=== PATIENT | male | born 1965 | race Caucasian/White ===

== ENCOUNTER 2023-04-26 14:34 | Inpatient (IN) | payer OTHER ==
[~2023-04-26] VITALS: Ht 162.6 cm; Wt 55.3 kg
[2023-04-26] MEDS ORDERED: ACETAMINOPHEN 650 MG/20.3 ML SOLUTION UDCUP PO PRN (16:15)
[2023-04-26] MEDS ORDERED: OxyCODONE HCL 5 MG IR TABLET PO PRN (16:15)
[2023-04-26] MEDS ORDERED: PNEUMOCOCCAL VACCINE POLYVALENT 0.5 ML VIAL [PPSV23] IM. ONE (18:00)
[2023-04-26 20:00] VITALS: BP 120/84; PULSE 89; RESP 18; TEMP 98; O2SAT 99
[2023-04-26] MEDS: DOCUSATE SODIUM 100 MG/10 ML LIQUID UDCUP PO SCH (21:00)
[2023-04-26] MEDS: SENNOSIDES 8.8 MG/5 ML SYRUP UDCUP PO SCH (21:00)
[2023-04-26] MEDS: -LIDODERM PATCH NOTE- MISC SCH (21:45)
[2023-04-26] MEDS: MELATONIN 5 MG TABLET PO SCH (21:53)
[2023-04-26] MEDS: CHLORHEXIDINE GLUCONATE 0.12% 15 ML UDCUP ORAL RINSE PO SCH (22:05)
[2023-04-27 06:48] LABS: BASOPHILS % (AUTO) 0.2 % (0.0-2.0); EOSINOPHILS % (AUTO) 1.8 % (1.0-6.0); HEMOGLOBIN 11.7 g/dL (13.5-17.5); LYMPHOCYTES # (AUTO) 1.3 K/uL (1.0-4.8); LYMPHOCYTES % (AUTO) 16.3 % (22.0-44.0); MEAN CORPUSCULAR HEMOGLOBIN 29.6 pg (26.0-34.0); MEAN CORPUSCULAR HGB CONC 33.5 G/dL (31.0-37.0); MEAN CORPUSCULAR VOLUME 89 fL (80-100); MONOCYTES # (AUTO) 0.7 K/uL (0.1-1.0); MONOCYTES % (AUTO) 8.9 % (2.0-9.0); NEUTROPHILS # (AUTO) 5.8 K/uL (1.8-7.7); NEUTROPHILS % (AUTO) 72.8 % (40.0-70.0); PLATELET COUNT (AUTO) 575 K/uL (150-450); RED BLOOD CELL COUNT(AUTO) 3.96 MIL/uL (4.50-5.90); RED CELL DISTRIBUTION WIDTH 13.2 % (11.5-14.5)
[2023-04-27 07:11] LABS: ALANINE AMINOTRANSFERASE 59 U/L (12-78); ALKALINE PHOSPHATASE 97 U/L (46-116); ANION GAP 8 mmol/L (8-16); ASPARTATE AMINOTRANSFERASE 28 U/L (15-37); BILIRUBIN,TOTAL 0.6 mg/dL (0.1-1.0); CALCIUM, TOTAL 9.2 mg/dL (8.8-10.5); CARBON DIOXIDE 30 mmol/L (22-29); CHLORIDE 101 mmol/L (98-107); CREATININE 0.81 mg/dL (0.60-1.30); GLOMERULAR FILTR. RATE CALC > 60 mL/min (>60); GLUCOSE,RANDOM 136 mg/dL (70-110); SODIUM SERUM 139 mmol/L (136-145); TOTAL PROTEIN, SERUM 7.2 g/dL (6.4-8.2)
[2023-04-27 08:27] VITALS: BP 114/76; PULSE 67; RESP 18; TEMP 98.5; O2SAT 98
[2023-04-27] MEDS: AmLODIPine BESYLATE 10 MG TABLET PO SCH (08:36)
[2023-04-27] MEDS: DOCUSATE SODIUM 100 MG/10 ML LIQUID UDCUP PO SCH ×2 (08:36→20:58)
[2023-04-27] MEDS: TAMSULOSIN HCL 0.4 MG CAPSULE PO SCH (08:36)
[2023-04-27] MEDS: CHLORHEXIDINE GLUCONATE 0.12% 15 ML UDCUP ORAL RINSE PO SCH ×4 (08:37→20:58)
[2023-04-27] MEDS: LIDOCAINE 5% TRANSDERMAL PATCH TD SCH (08:39)
[2023-04-27] MEDS: SENNOSIDES 8.8 MG/5 ML SYRUP UDCUP PO SCH (20:58)
[2023-04-27] MEDS: -LIDODERM PATCH NOTE- MISC SCH (20:58)
[2023-04-27] MEDS: MELATONIN 5 MG TABLET PO SCH (20:58)
[2023-04-27 21:00] VITALS: BP 143/80; RESP 16; TEMP 98; O2SAT 100
[2023-04-27 22:06] VITALS: O2SAT 100
[2023-04-28] MEDS: DOCUSATE SODIUM 100 MG/10 ML LIQUID UDCUP PO SCH ×2 (08:08→21:15)
[2023-04-28] MEDS: CHLORHEXIDINE GLUCONATE 0.12% 15 ML UDCUP ORAL RINSE PO SCH ×4 (08:08→23:42)
[2023-04-28] MEDS: TAMSULOSIN HCL 0.4 MG CAPSULE PO SCH (08:08)
[2023-04-28] MEDS: AmLODIPine BESYLATE 10 MG TABLET PO SCH (08:08)
[2023-04-28] MEDS: LIDOCAINE 5% TRANSDERMAL PATCH TD SCH (08:09)
[2023-04-28 18:37] VITALS: BP 113/77; PULSE 65; RESP 19; TEMP 98.4; O2SAT 98
[2023-04-28 18:40] VITALS: O2SAT 98
[2023-04-28 20:00] VITALS: BP 118/86; PULSE 97; RESP 18; TEMP 97.9; O2SAT 99
[2023-04-28] MEDS: -LIDODERM PATCH NOTE- MISC SCH (20:47)
[2023-04-28] MEDS: MELATONIN 5 MG TABLET PO SCH (21:16)
[2023-04-28] MEDS: SENNOSIDES 8.8 MG/5 ML SYRUP UDCUP PO SCH (21:16)
[2023-04-29] MEDS: CHLORHEXIDINE GLUCONATE 0.12% 15 ML UDCUP ORAL RINSE PO SCH ×4 (08:13→20:00)
[2023-04-29] MEDS: DOCUSATE SODIUM 100 MG/10 ML LIQUID UDCUP PO SCH ×2 (08:13→20:00)
[2023-04-29] MEDS: TAMSULOSIN HCL 0.4 MG CAPSULE PO SCH (08:14)
[2023-04-29] MEDS: AmLODIPine BESYLATE 10 MG TABLET PO SCH (08:14)
[2023-04-29] MEDS: LIDOCAINE 5% TRANSDERMAL PATCH TD SCH (08:14)
[2023-04-29 10:56] VITALS: BP 126/83; PULSE 76; RESP 20; TEMP 98.2; O2SAT 99
[2023-04-29 20:00] VITALS: BP 123/85; PULSE 78; RESP 18; TEMP 98; O2SAT 100
[2023-04-29] MEDS: MELATONIN 5 MG TABLET PO SCH (20:00)
[2023-04-29] MEDS: SENNOSIDES 8.8 MG/5 ML SYRUP UDCUP PO SCH (20:00)
[2023-04-29] MEDS: -LIDODERM PATCH NOTE- MISC SCH (20:01)
[2023-04-30 08:01] VITALS: BP 114/72; PULSE 68; RESP 18; TEMP 97.7; O2SAT 94
[2023-04-30] MEDS: TAMSULOSIN HCL 0.4 MG CAPSULE PO SCH (08:17)
[2023-04-30] MEDS: AmLODIPine BESYLATE 5 MG TABLET PO SCH (08:17)
[2023-04-30] MEDS: DOCUSATE SODIUM 100 MG/10 ML LIQUID UDCUP PO SCH ×2 (08:18→20:37)
[2023-04-30] MEDS: CHLORHEXIDINE GLUCONATE 0.12% 15 ML UDCUP ORAL RINSE PO SCH ×5 (08:18→20:37)
[2023-04-30] MEDS ORDERED: PANTOPRAZOLE SODIUM 40 MG DR TABLET PO SCH (09:00)
[2023-04-30] MEDS: DOCUSATE SODIUM 283 MG/5 ML MINI-ENEMA PR PRN (20:10)
[2023-04-30] MEDS: MELATONIN 5 MG TABLET PO SCH (20:37)
[2023-04-30] MEDS: SENNOSIDES 8.8 MG/5 ML SYRUP UDCUP PO SCH (20:37)
[2023-04-30 21:52] VITALS: BP 123/80; PULSE 67; RESP 19; TEMP 98.1; O2SAT 98
[2023-05-01] MEDS: DOCUSATE SODIUM 100 MG/10 ML LIQUID UDCUP PO SCH ×2 (09:00→20:22)
[2023-05-01 09:02] VITALS: BP 115/77; PULSE 67; RESP 18; TEMP 98.1; O2SAT 100
[2023-05-01] MEDS: TAMSULOSIN HCL 0.4 MG CAPSULE PO SCH (10:15)
[2023-05-01] MEDS: AmLODIPine BESYLATE 5 MG TABLET PO SCH (10:15)
[2023-05-01] MEDS: CHLORHEXIDINE GLUCONATE 0.12% 15 ML UDCUP ORAL RINSE PO SCH ×4 (10:16→20:24)
[2023-05-01 20:00] VITALS: BP 112/81; PULSE 76; RESP 16; TEMP 97.7; O2SAT 100
[2023-05-01] MEDS: SENNOSIDES 8.8 MG/5 ML SYRUP UDCUP PO SCH (20:23)
[2023-05-01] MEDS: MELATONIN 5 MG TABLET PO SCH ×2 (20:24→20:30)
[2023-05-02 08:12] VITALS: BP 117/79; PULSE 62; RESP 18; TEMP 97.9; O2SAT 100
[2023-05-02] MEDS: DOCUSATE SODIUM 100 MG/10 ML LIQUID UDCUP PO SCH ×2 (09:00→21:00)
[2023-05-02] MEDS: TAMSULOSIN HCL 0.4 MG CAPSULE PO SCH (09:06)
[2023-05-02] MEDS: AmLODIPine BESYLATE 5 MG TABLET PO SCH (09:06)
[2023-05-02] MEDS: CHLORHEXIDINE GLUCONATE 0.12% 15 ML UDCUP ORAL RINSE PO SCH ×4 (09:06→21:03)
[2023-05-02 20:01] VITALS: BP 120/83; PULSE 66; RESP 18; TEMP 97.3; O2SAT 100
[2023-05-02] MEDS: SENNOSIDES 8.8 MG/5 ML SYRUP UDCUP PO SCH (21:00)
[2023-05-02] MEDS: MELATONIN 5 MG TABLET PO SCH (21:02)
[2023-05-03 08:01] VITALS: BP 114/76; PULSE 62; RESP 18; TEMP 97.7; O2SAT 99
[2023-05-03] MEDS: CHLORHEXIDINE GLUCONATE 0.12% 15 ML UDCUP ORAL RINSE PO SCH ×4 (08:05→19:57)
[2023-05-03] MEDS: TAMSULOSIN HCL 0.4 MG CAPSULE PO SCH (08:06)
[2023-05-03] MEDS: AmLODIPine BESYLATE 5 MG TABLET PO SCH (08:06)
[2023-05-03] MEDS: DOCUSATE SODIUM 100 MG/10 ML LIQUID UDCUP PO SCH ×2 (08:10→19:59)
[2023-05-03] MEDS: SENNOSIDES 8.8 MG/5 ML SYRUP UDCUP PO SCH (19:58)
[2023-05-03] MEDS: MELATONIN 5 MG TABLET PO SCH (19:59)
[2023-05-03 20:00] VITALS: BP 111/82; PULSE 85; RESP 16; TEMP 97.5; O2SAT 99
[2023-05-04 07:08] LABS: BASOPHILS % (AUTO) 0.2 % (0.0-2.0); HEMOGLOBIN 12.3 g/dL (13.5-17.5); LYMPHOCYTES # (AUTO) 1.6 K/uL (1.0-4.8); LYMPHOCYTES % (AUTO) 21.7 % (22.0-44.0); MEAN CORPUSCULAR HEMOGLOBIN 29.6 pg (26.0-34.0); MEAN CORPUSCULAR HGB CONC 33.2 G/dL (31.0-37.0); MEAN CORPUSCULAR VOLUME 89 fL (80-100); MONOCYTES # (AUTO) 0.5 K/uL (0.1-1.0); MONOCYTES % (AUTO) 6.8 % (2.0-9.0); NEUTROPHILS # (AUTO) 5.2 K/uL (1.8-7.7); NEUTROPHILS % (AUTO) 69.3 % (40.0-70.0); PLATELET COUNT (AUTO) 388 K/uL (150-450); RED BLOOD CELL COUNT(AUTO) 4.15 MIL/uL (4.50-5.90); RED CELL DISTRIBUTION WIDTH 13.6 % (11.5-14.5)
[2023-05-04 07:24] LABS: ALANINE AMINOTRANSFERASE 36 U/L (12-78); ALBUMIN 3.2 g/dL (3.4-5.0); ALKALINE PHOSPHATASE 91 U/L (46-116); ANION GAP 8 mmol/L (8-16); ASPARTATE AMINOTRANSFERASE 13 U/L (15-37); BILIRUBIN,TOTAL 0.3 mg/dL (0.1-1.0); CALCIUM, TOTAL 8.8 mg/dL (8.8-10.5); CARBON DIOXIDE 29 mmol/L (22-29); CHLORIDE 103 mmol/L (98-107); CREATININE 0.85 mg/dL (0.60-1.30); GLOMERULAR FILTR. RATE CALC > 60 mL/min (>60); GLUCOSE,RANDOM 100 mg/dL (70-110); POTASSIUM 4.1 mmol/L (3.5-5.1); SODIUM SERUM 140 mmol/L (136-145); TOTAL PROTEIN, SERUM 6.7 g/dL (6.4-8.2)
[2023-05-04] MEDS: DOCUSATE SODIUM 100 MG/10 ML LIQUID UDCUP PO SCH ×2 (08:28→19:56)
[2023-05-04] MEDS: CHLORHEXIDINE GLUCONATE 0.12% 15 ML UDCUP ORAL RINSE PO SCH ×4 (08:28→19:56)
[2023-05-04] MEDS: AmLODIPine BESYLATE 5 MG TABLET PO SCH (08:28)
[2023-05-04] MEDS: TAMSULOSIN HCL 0.4 MG CAPSULE PO SCH (08:28)
[2023-05-04 10:19] VITALS: BP 112/80; PULSE 69; RESP 20; TEMP 97.8; O2SAT 99
[2023-05-04] MEDS: SENNOSIDES 8.8 MG/5 ML SYRUP UDCUP PO SCH (19:56)
[2023-05-04] MEDS: MELATONIN 5 MG TABLET PO SCH (19:56)
[2023-05-04 19:57] VITALS: BP 138/87; PULSE 75; RESP 16; TEMP 97.4; O2SAT 100
[2023-05-05] MEDS: DOCUSATE SODIUM 100 MG/10 ML LIQUID UDCUP PO SCH ×2 (07:43→19:06)
[2023-05-05] MEDS: CHLORHEXIDINE GLUCONATE 0.12% 15 ML UDCUP ORAL RINSE PO SCH ×4 (07:43→20:12)
[2023-05-05] MEDS: TAMSULOSIN HCL 0.4 MG CAPSULE PO SCH (07:43)
[2023-05-05] MEDS: AmLODIPine BESYLATE 5 MG TABLET PO SCH (07:43)
[2023-05-05 07:44] VITALS: BP 113/75; PULSE 84; RESP 18; TEMP 97.6; O2SAT 99
[2023-05-05 11:50] VITALS: RESP 16; O2SAT 99
[2023-05-05] MEDS: SENNOSIDES 8.8 MG/5 ML SYRUP UDCUP PO SCH (19:06)
[2023-05-05 20:00] VITALS: BP 115/70; PULSE 82; RESP 16; TEMP 97.8; O2SAT 99
[2023-05-05] MEDS: MELATONIN 5 MG TABLET PO SCH (20:05)
[2023-05-06 08:05] VITALS: BP 121/76; PULSE 68; RESP 18; TEMP 98.1; O2SAT 98
[2023-05-06] MEDS: TAMSULOSIN HCL 0.4 MG CAPSULE PO SCH (08:10)
[2023-05-06] MEDS: AmLODIPine BESYLATE 5 MG TABLET PO SCH (08:10)
[2023-05-06] MEDS: CHLORHEXIDINE GLUCONATE 0.12% 15 ML UDCUP ORAL RINSE PO SCH ×4 (08:11→20:05)
[2023-05-06] MEDS: DOCUSATE SODIUM 100 MG/10 ML LIQUID UDCUP PO SCH ×2 (08:11→20:05)
[2023-05-06 20:02] VITALS: BP 118/70; PULSE 64; RESP 18; TEMP 98.1; O2SAT 98
[2023-05-06] MEDS: SENNOSIDES 8.8 MG/5 ML SYRUP UDCUP PO SCH (20:05)
[2023-05-06] MEDS: MELATONIN 5 MG TABLET PO SCH (20:05)
[2023-05-07 09:00] VITALS: BP 115/78; PULSE 66; RESP 20; TEMP 98; O2SAT 98
[2023-05-07] MEDS: CHLORHEXIDINE GLUCONATE 0.12% 15 ML UDCUP ORAL RINSE PO SCH ×4 (09:23→20:50)
[2023-05-07] MEDS: DOCUSATE SODIUM 100 MG/10 ML LIQUID UDCUP PO SCH ×2 (09:28→20:50)
[2023-05-07] MEDS: TAMSULOSIN HCL 0.4 MG CAPSULE PO SCH (09:28)
[2023-05-07] MEDS: AmLODIPine BESYLATE 5 MG TABLET PO SCH (09:28)
[2023-05-07 20:02] VITALS: BP 109/79; PULSE 83; RESP 18; TEMP 97.7; O2SAT 99
[2023-05-07] MEDS: SENNOSIDES 8.8 MG/5 ML SYRUP UDCUP PO SCH (20:50)
[2023-05-07] MEDS: MELATONIN 5 MG TABLET PO SCH (20:50)
[2023-05-08 08:32] VITALS: BP 124/76; PULSE 75; RESP 18; TEMP 97.7; O2SAT 98
[2023-05-08] MEDS: AmLODIPine BESYLATE 5 MG TABLET PO SCH (09:29)
[2023-05-08] MEDS: TAMSULOSIN HCL 0.4 MG CAPSULE PO SCH (09:30)
[2023-05-08] MEDS: DOCUSATE SODIUM 100 MG/10 ML LIQUID UDCUP PO SCH ×2 (09:30→20:53)
[2023-05-08] MEDS: CHLORHEXIDINE GLUCONATE 0.12% 15 ML UDCUP ORAL RINSE PO SCH ×4 (09:30→20:53)
[2023-05-08 20:20] VITALS: BP 117/82; PULSE 77; RESP 18; TEMP 97.9; O2SAT 95
[2023-05-08] MEDS: SENNOSIDES 8.8 MG/5 ML SYRUP UDCUP PO SCH (20:53)
[2023-05-08] MEDS: MELATONIN 5 MG TABLET PO SCH (20:54)
[2023-05-09 08:02] VITALS: BP 120/79; PULSE 66; RESP 18; TEMP 97.7; O2SAT 98
[2023-05-09] MEDS: DOCUSATE SODIUM 100 MG/10 ML LIQUID UDCUP PO SCH ×2 (08:12→20:24)
[2023-05-09] MEDS: CHLORHEXIDINE GLUCONATE 0.12% 15 ML UDCUP ORAL RINSE PO SCH ×4 (08:12→20:25)
[2023-05-09] MEDS: TAMSULOSIN HCL 0.4 MG CAPSULE PO SCH (08:13)
[2023-05-09] MEDS: AmLODIPine BESYLATE 5 MG TABLET PO SCH (08:13)
[2023-05-09] MEDS: SENNOSIDES 8.8 MG/5 ML SYRUP UDCUP PO SCH (20:25)
[2023-05-09] MEDS: MELATONIN 5 MG TABLET PO SCH (20:26)
[2023-05-09 21:00] VITALS: BP 120/78; PULSE 72; RESP 18; TEMP 97.7; O2SAT 99
[2023-05-10] MEDS: DOCUSATE SODIUM 283 MG/5 ML MINI-ENEMA PR PRN (06:04)
[2023-05-10 08:10] VITALS: BP 126/80; PULSE 67; RESP 18; TEMP 97.8; O2SAT 97
[2023-05-10] MEDS: AmLODIPine BESYLATE 5 MG TABLET PO SCH (08:23)
[2023-05-10] MEDS: DOCUSATE SODIUM 100 MG/10 ML LIQUID UDCUP PO SCH ×2 (08:23→20:04)
[2023-05-10] MEDS: TAMSULOSIN HCL 0.4 MG CAPSULE PO SCH (08:23)
[2023-05-10] MEDS: CHLORHEXIDINE GLUCONATE 0.12% 15 ML UDCUP ORAL RINSE PO SCH ×4 (08:23→20:03)
[2023-05-10] MEDS: SENNOSIDES 8.8 MG/5 ML SYRUP UDCUP PO SCH (20:04)
[2023-05-10] MEDS: MELATONIN 5 MG TABLET PO SCH (20:04)
[2023-05-10 20:15] VITALS: BP 121/81; PULSE 78; RESP 19; TEMP 97.9; O2SAT 98
[2023-05-11 08:10] VITALS: BP 137/76; PULSE 68; RESP 19; TEMP 97.9; O2SAT 98
[2023-05-11] MEDS: DOCUSATE SODIUM 100 MG/10 ML LIQUID UDCUP PO SCH ×2 (08:34→20:12)
[2023-05-11] MEDS: TAMSULOSIN HCL 0.4 MG CAPSULE PO SCH (08:35)
[2023-05-11] MEDS: AmLODIPine BESYLATE 5 MG TABLET PO SCH (08:35)
[2023-05-11] MEDS: CHLORHEXIDINE GLUCONATE 0.12% 15 ML UDCUP ORAL RINSE PO SCH ×4 (08:35→20:10)
[2023-05-11 20:00] VITALS: BP 112/77; PULSE 84; RESP 20; TEMP 97.6; O2SAT 98
[2023-05-11] MEDS: SENNOSIDES 8.8 MG/5 ML SYRUP UDCUP PO SCH (20:11)
[2023-05-11] MEDS: MELATONIN 5 MG TABLET PO SCH (20:11)
[2023-05-12] MEDS ORDERED: PERID15L PO ×2 (03:24→09:29)
[2023-05-12] MEDS ORDERED: AMLO-257 PO ×2 (03:24→09:29)
[2023-05-12] MEDS ORDERED: TAMS-13 PO ×2 (03:24→09:29)
[2023-05-12] MEDS ORDERED: DOCU50LI40 PO ×2 (03:24→09:29)
[2023-05-12] MEDS ORDERED: MELA5TAB40 PO ×2 (03:24→09:29)
[2023-05-12] MEDS ORDERED: SENN8.8S31 PO ×2 (03:24→09:29)
[2023-05-12 08:05] VITALS: BP 117/75; PULSE 67; RESP 19; TEMP 97.9; O2SAT 99
[2023-05-12] MEDS: CHLORHEXIDINE GLUCONATE 0.12% 15 ML UDCUP ORAL RINSE PO SCH ×4 (08:23→20:06)
[2023-05-12] MEDS: TAMSULOSIN HCL 0.4 MG CAPSULE PO SCH (08:23)
[2023-05-12] MEDS: DOCUSATE SODIUM 100 MG/10 ML LIQUID UDCUP PO SCH ×2 (08:23→20:06)
[2023-05-12] MEDS: AmLODIPine BESYLATE 5 MG TABLET PO SCH (08:23)
[2023-05-12] MEDS: SENNOSIDES 8.8 MG/5 ML SYRUP UDCUP PO SCH (20:06)
[2023-05-12] MEDS: MELATONIN 5 MG TABLET PO SCH (20:06)
[2023-05-12 21:00] VITALS: BP 110/83; PULSE 90; RESP 18; TEMP 98; O2SAT 99
[2023-05-13 08:10] VITALS: BP 119/79; PULSE 80; RESP 18; TEMP 98; O2SAT 98
[2023-05-13] MEDS: TAMSULOSIN HCL 0.4 MG CAPSULE PO SCH (08:28)
[2023-05-13] MEDS: CHLORHEXIDINE GLUCONATE 0.12% 15 ML UDCUP ORAL RINSE PO SCH (08:28)
[2023-05-13] MEDS: DOCUSATE SODIUM 100 MG/10 ML LIQUID UDCUP PO SCH (08:28)
[2023-05-13] MEDS: AmLODIPine BESYLATE 5 MG TABLET PO SCH (08:28)
[2023-05-13] MEDS ORDERED: PNEUMOCOCCAL VACCINE POLYVALENT 0.5 ML VIAL [PPSV23] IM. ONE (10:15)
== END 2023-05-13 13:15 | disposition home health service (06) | DRG 83 ==
LOC: 2WR 15:41
PROVIDERS: ADMIT Physical Medicine & Rehabilitation; ATTEND Physical Medicine & Rehabilitation
PROC: 3E0234Z Introduction of Serum, Toxoid and Vaccine into Muscle, Percutaneous Approach (ICD-10-PCS; principal; 2023-04-26)
DX: S06.2XAA Diffuse traumatic brain injury with loss of consciousness status unknown, initial encounter (principal); E46 Unspecified protein-calorie malnutrition; M48.54XA Collapsed vertebra, not elsewhere classified, thoracic region, initial encounter for fracture; R47.01 Aphasia; D64.9 Anemia, unspecified; D75.839 Thrombocytosis, unspecified; I10 Essential (primary) hypertension; M48.061 Spinal stenosis, lumbar region without neurogenic claudication; N40.0 Benign prostatic hyperplasia without lower urinary tract symptoms; K59.00 Constipation, unspecified; Z74.1 Need for assistance with personal care; R26.9 Unspecified abnormalities of gait and mobility; R13.10 Dysphagia, unspecified; R40.2430 Glasgow coma scale score 3-8, unspecified time; R53.1 Weakness; G31.84 Mild cognitive impairment of uncertain or unknown etiology; I80.02 Phlebitis and thrombophlebitis of superficial vessels of left lower extremity; V19.9XXA Pedal cyclist (driver) (passenger) injured in unspecified traffic accident, initial encounter; Z68.21 Body mass index [BMI] 21.0-21.9, adult; Y93.55 Activity, bike riding; Y92.512 Supermarket, store or market as the place of occurrence of the external cause; Y99.0 Civilian activity done for income or pay
CPT/HCPCS: 80053; 85025; 87081; 90732; 92507; 92521; 92526; 92610; 93970; 97110; 97112; 97116; 97163; 97167; 97530; 97535; 99366; Q9967